=== PATIENT | female | born 1975 | race American Indian/Alaskan Native ===

== ENCOUNTER 2024-07-12 08:00 | Emergency (ER) | payer OTHER, SELFPAY ==
--- NOTE | 2024-07-12 08:07 | PD.EDNEURO ---
Neuro Symptoms Deficit-RME/HPI General Chief Complaint: Neuro Symptoms/Deficit Stated Complaint: L FACIAL DROOP Time Seen by Provider: 07/12/24 09:11 Arrival date/time: 07/12/24 08:00 RME / HPI RME / HPI Narrative: DR. YOUNG MAIN ED EVALUATION: 48 year old female with past medical history significant for mast cell activation syndrome presents to the Emergency Department stating she feels like her left lid is drooping, left sided facial numbness and tingling, left arm numbness as well. She states that the symptoms started while driving, she is from [place], here for a job. Denies any thyroid problems. No other symptoms reported at this time. Related Data Allergies Allergy/AdvReac Type Severity Reaction Status Date / Time iodine Allergy Verified 07/12/24 08:07 Latex, Natural Rubber Allergy Verified 07/12/24 08:07 Review of Systems Review of Systems Systems Reviewed: All systems reviewed, normal except as documented Past Medical History Social History SMOKING STATUS: Never smoker SUBSTANCE USE: does not use ALCOHOL: Never Past Medical History Comments PMH COMMENT: mast cell activation syndrome ED Exam Narrative Physical exam: GENERAL APPEARANCE: alert and oriented x 4, well-developed, well-nourished, no acute distress VITALS: All vitals were reviewed and the pulse ox is 96% on room air, which is normal according to my interpretation. HEENT: Normocephalic, atraumatic; pupils equal, round, reactive to light; EOMI; mucous membranes pink, moist; oropharynx clear NECK: Supple LUNGS: CTABL; no wheezes, no rales, no rhonchi HEART: Regular rate, regular rhythm; normal S1, S2; no murmurs ABDOMEN: non distended; normal BS; soft, no tenderness, no guarding, no rebound; no masses, no organomegaly, no hernia BACK: no CVA tenderness EXTREMITIES: atraumatic; no edema NEUROLOGIC: awake; alert and oriented x4; cranial nerves II-XII grossly intact; no focal sensory or motor deficits PSYCHIATRIC: appropriate mood and affect SKIN: warm, dry, normal color; no rashes Course Quality Measures none Reevaluation(s) Reevaluation #1: Patient states she feels better that she just felt like she had make up in her eye. She states she would like to go out home. Time: 09:12 Vital Signs Vital signs: Vital Signs Temperature 97.9 F 07/12/24 08:17 Pulse Rate 96 07/12/24 08:17 Respiratory Rate 18 07/12/24 08:17 Blood Pressure 149/83 H 07/12/24 08:17 Pulse Oximetry (%) 96 07/12/24 08:17 Oxygen Delivery Method Room Air 07/12/24 08:17 Neuro Symptoms / Deficit MDM Narrative MDM Narrative:: I, Shoshana Bergeron, am scribing for and in the presence of Dr. Young. Patient data External records reviewed:: None (no previous visits) Clinical information provided by:: patient Social determinants that could affect healthcare access:: none Patient has the following chronic illnesses:: mast cell activation syndrome How is presenting disease/condition affected by chronic disease/condition?: uneffected by Evaluation data The following diagnostics were reviewed and interpreted by me:: other (specify) (none) Lab and/or radiology exams considered but not ordered:: none Interpretation Summary: n/a Medications / Prescriptions Medications or Prescriptions considered but not ordered:: none Medication administrations:: see above if any Consultations Consultation(s) initiated? (list below): No Diagnosis Neuro Differential Diagnosis: cerebrovascular accident, transient cerebral ischemia and other (anxiety) Most likely diagnosis given after review of the tests above:: Paresthesia Admission Indicated Admission indicated?: not indicated Admission Request Was there a request for admission?: No Disposition Plan Disposition Plan: Discharge Discharge Attestation Discharge Attestation: The patient and all family members were given an opportunity to ask questions and understood the discharge instructions. Discharge instructions specifically effects, indications for sooner follow up or return to the emergency department, and the expected course of current diagnosis. Patient condition: Stable Discharge Plan Plan Patient Disposition: HOME (Self Care) Problem List Clinical Impression: Paresthesia Patient/Caregiver Discharge Instructions Education Materials: ED Paraesthesias Print Language: [place] Stand Alone Forms: Shelli Award Info., Patient Portal Info Letter
--- NOTE | 2024-07-12 08:10 | PC.NURSE ---
Patient seen immediately by Dr. Young at triage.
[2024-07-12 08:17] VITALS: BP 133/82; BP 149/83; PULSE 96; RESP 18; TEMP 36.6; O2SAT 96; BMI 32.9
== END 2024-07-12 09:34 | disposition home or self-care (01) ==
LOC: SERX 09:22
PROVIDERS: Emergency Provider Emergency Medicine
DX: R20.2 Paresthesia of skin (principal); D89.40 Mast cell activation, unspecified
CPT/HCPCS: 99281